=== PATIENT | female | born 1995 | race Caucasian/White ===

== ENCOUNTER 2016-12-20 12:29 | Emergency (ER) | payer OTHER ==
[~2016-12-20] VITALS: Wt 110.7 kg
[2016-12-20 13:00] LABS: BILIRUBIN NEGATIVE (NEGATIVE); BLOOD 3+ (NEGATIVE); CLARITY CLOUDY (CLEAR); COLOR BROWN (YELLOW); GLUCOSE NEGATIVE (NEGATIVE); KETONE TRACE (NEGATIVE); LEUKO ESTERASE 1+ (NEGATIVE); NITRITE NEGATIVE (NEGATIVE); PROTEIN TRACE (NEGATIVE); UROBILINOGEN 0.2 E.U./dl (0.2-1.0)
[2016-12-20 13:33] LABS: BACTERIA 2+; EPITHELIAL CELLS 20-30; MUCOUS 1+; RBC 16-20 rbc/hpf (0-2); URINE REFLEX COMMENT YES (NO); WBC 31-40 wbc/hpf (0-5)
[2016-12-20] MEDS ORDERED: PYRIDIUM200 M1 PO (13:37)
[2016-12-20] MEDS ORDERED: MACROBID100 M1 PO (13:37)
== END 2016-12-20 13:49 | disposition home or self-care (01) ==
LOC: ED 12:29
PROVIDERS: Nurse Practitioner Family
DX: N30.01 Acute cystitis with hematuria (principal); R03.0 Elevated blood-pressure reading, without diagnosis of hypertension

== ENCOUNTER 2017-04-13 16:00 | Emergency (ER) | payer OTHER ==
[~2017-04-13] VITALS: Ht 165.1 cm; Wt 117.9 kg
[~2017-04-13 16:00] MED LIST: MACROBID100 M1 PO; PYRIDIUM200 M1 PO
[2017-04-13] MEDS ORDERED: FLONASE ALLERG9.9 ML NAS (17:14)
[2017-04-13] MEDS ORDERED: AMOXICILLIN500 M2 PO (17:14)
== END 2017-04-13 17:19 | disposition home or self-care (01) ==
LOC: ED 16:00
DX: H66.91 Otitis media, unspecified, right ear (principal); J06.9 Acute upper respiratory infection, unspecified

== ENCOUNTER 2018-06-20 15:27 | Emergency (ER) | payer OTHER ==
[~2018-06-20] VITALS: Ht 165.1 cm; Wt 138.3 kg
[~2018-06-20 15:27] MED LIST changes: +AMOXICILLIN500 M2 PO; +FLONASE ALLERG9.9 ML NAS
== END 2018-06-20 17:40 | disposition home or self-care (01) ==
LOC: ED 15:27
DX: M25.561 Pain in right knee (principal); X58.XXXA Exposure to other specified factors, initial encounter; Y93.89 Activity, other specified; Y92.89 Other specified places as the place of occurrence of the external cause; Y99.8 Other external cause status

== ENCOUNTER 2018-06-25 12:50 | Emergency (ER) | payer OTHER ==
[2018-06-25] MEDS ORDERED: CORTISPORIN SUS10 ML OT (13:01)
== END 2018-06-25 13:11 | disposition home or self-care (01) ==
LOC: ED 12:50
DX: H92.01 Otalgia, right ear (principal); Z79.2 Long term (current) use of antibiotics; Z79.899 Other long term (current) drug therapy

== ENCOUNTER 2023-09-09 21:17 | Emergency (ER) | payer MEDICARE, MEDICAID ==
[~2023-09-09] VITALS: Ht 167.6 cm; Wt 163.3 kg
[~2023-09-09 21:17] MED LIST changes: +CORTISPORIN SUS10 ML OT
[2023-09-09] MEDS ORDERED: Tdap Vaccine 0.5 ML SYR (Adult Vaccine) IM ONE (21:55)
== END 2023-09-09 22:30 | disposition home or self-care (01) ==
LOC: ED
DX: S99.921A Unspecified injury of right foot, initial encounter (principal); I10 Essential (primary) hypertension; F41.9 Anxiety disorder, unspecified; F32.A Depression, unspecified; W22.8XXA Striking against or struck by other objects, initial encounter; Y93.89 Activity, other specified; Y92.89 Other specified places as the place of occurrence of the external cause; Y99.8 Other external cause status